=== PATIENT | female | born 1990 | race Caucasian/White ===

== ENCOUNTER 2017-07-07 05:24 | Day surgery (SDC) | payer OTHER ==
[2017-07-07] MEDS ORDERED: ONDANSETRON 4 MG/2 ML VIAL IVP ONE (05:48)
[2017-07-07] MEDS ORDERED: NS 1,000 ML IV ONE (05:48)
--- NOTE | 2017-07-07 05:51 | EDPHY ---
H & P Stated Complaint: RUQ pain - Personal History LMP (Females 10-55): 1-7 Days Ago Current Tetanus/Diphtheria Vaccine: Yes Current Tetanus Diphtheria and Acellular Pertussis (TDAP): Yes - Medical/Surgical History Hx Asthma: No Hx Chronic Respiratory Disease: No Hx Diabetes: No Hx Cardiac Disease: No Hx Renal Disease: No Hx Cirrhosis: No Hx Alcoholism: No Hx HIV/AIDS: No Hx Splenectomy or Spleen Trauma: No Other PMH: none - Social History Smoking Status: Never smoked Time Seen by Provider: 07/07/17 05:37 HPI/ROS: Chief Complaint: Abdominal pain HPI: 27 year wounds been having intermittent right lower quadrant abdominal pain for the last week. Patient states the pain is always there but for the last 3 nights he has particularly worse in the male tonight is been waking her up. At worst the pain is about an 8/10. It at best gets down to about a 5. She feels like she has been constipated but has been catheterization passing gas. Also is occasionally having diarrhea. There been no alleviating factors. She does state that tonight it hurts to walk and the car ride and was uncomfortable. Some nausea but no vomiting. No chest pain or shortness of breath. Does not have a history of similar episodes in the past. Last menstrual. Was a week ago and was normal. She is usually irregular. She has never been . She has an IUD in place. No history of sexually transmitted diseases. Abnormal vaginal discharge. ROS: 10 point Review of Systems is negative except as noted in the HPI. PMH: Denies Social History: No smoking, occasional alcohol, no recreational drug use Family History: non-contributory Physical Exam: Gen: Awake, Alert, No Distress HEENT: Nose: no rhinorrhea Eyes: PERRLA, EOMI Mouth: Moist mucosa Neck: Supple, no JVD Chest: nontender, lungs clear to auscultation Heart: S1, S2 normal, no murmur Abd: Soft, she is tender in the right lower quadrant with voluntary guarding, she has a positive Rovsing sign, voluntary guarding is present Back: no CVA tenderness, no midline tenderness Ext: no edema, non-tender Skin: no rash Neuro: CN II-XII intact, Sensation grossly intact, Strength 5/5 in bilateral upper and lower extremities (Murali Barahona) Constitutional: Initial Vital Signs Temperature (C) 36.9 C 07/07/17 05:28 Heart Rate 91 07/07/17 05:28 Respiratory Rate 16 07/07/17 05:28 Blood Pressure 107/71 07/07/17 05:28 O2 Sat (%) 97 07/07/17 05:28 O2 Delivery Mode Room Air O2 (L/minute) 2 Allergies/Adverse Reactions: No Known Allergies Allergy (Unverified 07/07/17 05:28) Home Medications: Medication Instructions Recorded Ciprofloxacin [Cipro] 500 mg PO BID #6 tab 10/19/13 Phenazopyridine HCl [Pyridium 200 mg PO TID #6 tab 10/19/13 200mg (RX)] Medical Decision Making ED Course/Re-evaluation: 27-year-old with right lower quadrant right adnexal pain. Will check labs, test and ultrasound. IV analgesia. Patient has an IUD in place. 06:30 test is positive. Given her history of IUD this makes it very concerning for likely ectopic . She is currently getting an ultrasound now. I have ordered a type and screen and a quantitative hCG. 0700 ultrasound is pending, quantitative HCG and type and screen are pending. Patient is signed out to Dr. Cummins pending ultrasound results. (Murali Barahona) Other Provider: Patient signed out to me at 0700 pending US results. This was read by Dr. Kulkarni as 8x5cm right adnexal mass, likely ectopic . No IUP. OBGYN paged immediately. Discussed case with Dr. Liz at 830. She will come evaluate the patient. (Juancarlos Cummins) - Data Points Laboratory Results: Laboratory Results 07/07/17 05:40 07/07/17 05:40 07/07/17 07/07/17 07/07/17 06:35 05:40 05:40 WBC RBC Hgb Hct MCV MCH MCHC RDW Plt Count MPV Neut % (Auto) Lymph % (Auto) [place] % (Auto) Eos % (Auto) Baso % (Auto) Nucleat RBC Rel Count Absolute Neuts (auto) Absolute Lymphs (auto) Absolute Monos (auto) Absolute Eos (auto) Absolute Basos (auto) Absolute Nucleated RBC Immature Gran % Immature Gran # Sodium 139 mEq/L mEq/L (134-144) Potassium 3.4 mEq/L L mEq/L (3.5-5.2) Chloride 104 mEq/L mEq/L (97-110) Carbon Dioxide 24 mEq/l mEq/l (22-31) Anion Gap 11 mEq/L mEq/L (8-16) BUN 11 mg/dL mg/dL (7-23) Creatinine 0.7 mg/dL mg/dL (0.6-1.0) Estimated GFR > 60 Glucose 112 mg/dL H mg/dL (70-100) Calcium 9.6 mg/dL mg/dL (8.5-10.4) Beta HCG, Qual POSITIVE Beta HCG, Quant Urine Color Urine Appearance Urine pH Ur Specific [place] Urine Protein Urine Ketones Urine Blood Urine Nitrate Urine Bilirubin Urine Urobilinogen Ur Leukocyte Esterase Urine RBC Urine WBC Ur Epithelial Cells Urine Mucus Urine Glucose Patient ABO/Rh O POSITIVE Antibody Screen NEGATIVE 07/07/17 07/07/17 07/07/17 05:40 05:30 05:25 WBC 15.29 10^3/uL H 10^3/uL (3.80-9.50) RBC 4.28 10^6/uL 10^6/uL (4.18-5.33) Hgb 13.0 g/dL g/dL (12.6-16.3) Hct 37.0 % L % (38.0-47.0) MCV 86.4 fL fL (81.5-99.8) MCH 30.4 pg pg (27.9-34.1) MCHC 35.1 g/dL g/dL (32.4-36.7) RDW 12.9 % % (11.5-15.2) Plt Count 332 10^3/uL 10^3/uL (150-400) MPV 8.3 fL L fL (8.7-11.7) Neut % (Auto) 81.5 % H % (39.3-74.2) Lymph % (Auto) 12.8 % L % (15.0-45.0) [place] % (Auto) 4.4 % L % (4.5-13.0) Eos % (Auto) 0.5 % L % (0.6-7.6) Baso % (Auto) 0.3 % % (0.3-1.7) Nucleat RBC Rel Count 0.0 % % (0.0-0.2) Absolute Neuts (auto) 12.46 10^3/uL H 10^3/uL (1.70-6.50) Absolute Lymphs (auto) 1.96 10^3/uL 10^3/uL (1.00-3.00) Absolute Monos (auto) 0.67 10^3/uL 10^3/uL (0.30-0.80) Absolute Eos (auto) 0.08 10^3/uL 10^3/uL (0.03-0.40) Absolute Basos (auto) 0.05 10^3/uL 10^3/uL (0.02-0.10) Absolute Nucleated RBC 0.00 10^3/uL 10^3/uL (0-0.01) Immature Gran % 0.5 % % (0.0-1.1) Immature Gran # 0.07 10^3/uL 10^3/uL (0.00-0.10) Sodium Potassium Chloride Carbon Dioxide Anion Gap BUN Creatinine Estimated GFR Glucose Calcium Beta HCG, Qual Beta HCG, Quant 4618.20 mIU/mL H mIU/mL (0.00-4.83) Urine Color YELLOW Urine Appearance HAZY Urine pH 5.0 (5.0-7.5) Ur Specific [place] 1.032 H (1.002-1.030) Urine Protein 1+ H (NEGATIVE) Urine Ketones TRACE H (NEGATIVE) Urine Blood 2+ H (NEGATIVE) Urine Nitrate NEGATIVE (NEGATIVE) Urine Bilirubin NEGATIVE (NEGATIVE) Urine Urobilinogen NEGATIVE EU EU (0.2-1.0) Ur Leukocyte Esterase NEGATIVE (NEGATIVE) Urine RBC 15-25 /hpf H /hpf (0-3) Urine WBC 1-3 /hpf /hpf (0-3) Ur Epithelial Cells TRACE /lpf /lpf (NONE-1+) Urine Mucus 1+ /lpf /lpf (NONE-1+) Urine Glucose NEGATIVE (NEGATIVE) Patient ABO/Rh Antibody Screen Medications Given: Discontinued Medications Hydromorphone HCl (Dilaudid) 0.5 mg IVP EDNOW ONE Stop: 07/07/17 08:00 Last Admin: 07/07/17 08:04 Dose: 0.5 mg Sodium Chloride (Ns) 1,000 mls @ 0 mls/hr IV ONCE ONE; Wide Open PRN Reason: Protocol Stop: 07/07/17 05:49 Last Admin: 07/07/17 06:00 Dose: 1,000 mls Morphine Sulfate (Morphine) 4 mg IVP ONCE ONE Stop: 07/07/17 05:49 Last Admin: 07/07/17 06:01 Dose: 4 mg Ondansetron HCl (Zofran) 4 mg IVP EDNOW ONE Stop: 07/07/17 05:49 Last Admin: 07/07/17 06:01 Dose: 4 mg Departure - Departure Disposition: [facility] Inpatient Acute Clinical Impression: Ectopic Qualifiers: Location of ectopic : tubal Intrauterine status: without intrauterine Laterality: right Qualified Code(s): O00.101 - Right tubal without intrauterine Condition: Fair Referrals: Lizeth Carter MD [Primary Care Provider] - As per Instructions
[2017-07-07 05:54] LABS: % IMMATURE GRANULYOCYTES 0.5 % (0.0-1.1); ABSOLUTE IMMATURE GRANULOCYTES 0.07 10^3/uL (0.00-0.10); ADD DIFF? NO; ADD MORPH? NO; ADD SCAN? NO; ATYPICAL LYMPHOCYTE FLAG 10 (0-99); FRAGMENT RBC FLAG 0 (0-99); LEFT SHIFT FLG 0 (0-99); LIPEMIA HEMOLYSIS FLAG 90 (0-99); MEAN CELL HEMOGLOBIN 30.4 pg (27.9-34.1); MEAN CELL HEMOGLOBIN CONCENTR. 35.1 g/dL (32.4-36.7); MEAN CELL VOLUME 86.4 fL (81.5-99.8); MEAN PLATELET VOLUME 8.3 fL (8.7-11.7); PLATELET CLUMPS FLAG 0 (0-99); PLATELET COUNT 332 10^3/uL (150-400); RED BLOOD CELL COUNT 4.28 10^6/uL (4.18-5.33); RED CELL DISTRIBUTION WIDTH 12.9 % (11.5-15.2)
[2017-07-07 05:57] LABS: LEUKOCYTE ESTERASE,URINE NEGATIVE (NEGATIVE); NITRITE,URINE NEGATIVE (NEGATIVE)
[2017-07-07 06:00] LABS: COLOR YELLOW
[2017-07-07 06:02] LABS: MUCUS 1+ /lpf (NONE-1+); RBC,URINE 15-25 /hpf (0-3)
[2017-07-07 06:14] LABS: ANION GAP 11 mEq/L (8-16); CALCIUM 9.6 mg/dL (8.5-10.4); CARBON DIOXIDE 24 mEq/l (22-31); CHLORIDE 104 mEq/L (97-110); CREATININE 0.7 mg/dL (0.6-1.0); GLOMERULAR FILTRATION RATE > 60; GLUCOSE 112 mg/dL (70-100); POTASSIUM 3.4 mEq/L (3.5-5.2); SODIUM 139 mEq/L (134-144)
[2017-07-07] MEDS ORDERED: HYDROmorphONE/DILAUDID 1 MG/ML INJ IVP ONE (07:59)
[2017-07-07] MEDS ORDERED: ceFAZolin 2 GM/SWFI 2 GM/20 ML SYR IVP ONE (08:48)
[2017-07-07] MEDS ORDERED: LR 1,000 ML IV SCH (09:00)
--- NOTE | 2017-07-07 09:07 | PDGENHP ---
History and Physical - Chief Complaint pelvic pain - History of Present Illness Chief Complaint: Abdominal pain HPI: 27 year with IUD who started bleeding last week and thought it was her period. Patient has had the copper IUD in place for 3 years. Pt has been having intermittent right lower quadrant abdominal pain for the last week. Patient states the pain is always there but for the last 3 nights he has particularly worse in the male tonight is been waking her up. At worst the pain is about an 8/10. It at best gets down to about a 5. She feels like she has been constipated but has been catheterization passing gas. Also is occasionally having diarrhea. There been no alleviating factors. She does state that tonight it hurts to walk and the car ride and was uncomfortable. Some nausea but no vomiting. No chest pain or shortness of breath. Does not have a history of similar episodes in the past. Last menstrual. Was a week ago and was normal. She is usually irregular. She has never been . She has an IUD in place. No history of sexually transmitted diseases. History Information - Allergies/Home Medication List Allergies/Adverse Reactions: No Known Allergies Allergy (Unverified 07/07/17 05:28) I have personally reviewed and updated: medical history - Social History Smoking Status: Never smoked Review of Systems Review of Systems: Physical Exam Physical Exam: Temp Pulse Resp BP Pulse Ox 36.9 C 73 18 112/73 97 07/07/17 05:28 07/07/17 08:09 07/07/17 08:09 07/07/17 08:09 07/07/17 08:10 Constitutional: no apparent distress Cardiovascular: regular rate and rhythym Respiratory: no respiratory distress Gastrointestinal: normoactive bowel sounds, soft, non-tender abdomen Genitourinary: no bladder fullness, other (speculum exam: small amount of blood in vagina Os closed. bimanual exam posterior fullness and abdominal tenderness.) Skin: warm, normal color Musculoskeletal: full muscle strength Neurologic: AAOx3 Psychiatric: interacting appropriately, not anxious Lab Data & Imaging Review 07/07/17 05:40 07/07/17 05:40 WBC 15.29 10^3/uL (3.80-9.50) H 07/07/17 05:40 RBC 4.28 10^6/uL (4.18-5.33) 07/07/17 05:40 Hgb 13.0 g/dL (12.6-16.3) 07/07/17 05:40 Hct 37.0 % (38.0-47.0) L 07/07/17 05:40 MCV 86.4 fL (81.5-99.8) 07/07/17 05:40 MCH 30.4 pg (27.9-34.1) 07/07/17 05:40 MCHC 35.1 g/dL (32.4-36.7) 07/07/17 05:40 RDW 12.9 % (11.5-15.2) 07/07/17 05:40 Plt Count 332 10^3/uL (150-400) 07/07/17 05:40 MPV 8.3 fL (8.7-11.7) L 07/07/17 05:40 Neut % (Auto) 81.5 % (39.3-74.2) H 07/07/17 05:40 Lymph % (Auto) 12.8 % (15.0-45.0) L 07/07/17 05:40 [place] % (Auto) 4.4 % (4.5-13.0) L 07/07/17 05:40 Eos % (Auto) 0.5 % (0.6-7.6) L 07/07/17 05:40 Baso % (Auto) 0.3 % (0.3-1.7) 07/07/17 05:40 Nucleat RBC Rel Count 0.0 % (0.0-0.2) 07/07/17 05:40 Absolute Neuts (auto) 12.46 10^3/uL (1.70-6.50) H 07/07/17 05:40 Absolute Lymphs (auto) 1.96 10^3/uL (1.00-3.00) 07/07/17 05:40 Absolute Monos (auto) 0.67 10^3/uL (0.30-0.80) 07/07/17 05:40 Absolute Eos (auto) 0.08 10^3/uL (0.03-0.40) 07/07/17 05:40 Absolute Basos (auto) 0.05 10^3/uL (0.02-0.10) 07/07/17 05:40 Absolute Nucleated RBC 0.00 10^3/uL (0-0.01) 07/07/17 05:40 Immature Gran % 0.5 % (0.0-1.1) 07/07/17 05:40 Immature Gran # 0.07 10^3/uL (0.00-0.10) 07/07/17 05:40 Sodium 139 mEq/L (134-144) 07/07/17 05:40 Potassium 3.4 mEq/L (3.5-5.2) L 07/07/17 05:40 Chloride 104 mEq/L (97-110) 07/07/17 05:40 Carbon Dioxide 24 mEq/l (22-31) 07/07/17 05:40 Anion Gap 11 mEq/L (8-16) 07/07/17 05:40 BUN 11 mg/dL (7-23) 07/07/17 05:40 Creatinine 0.7 mg/dL (0.6-1.0) 07/07/17 05:40 Estimated GFR > 60 07/07/17 05:40 Glucose 112 mg/dL (70-100) H 07/07/17 05:40 Calcium 9.6 mg/dL (8.5-10.4) 07/07/17 05:40 Beta HCG, Qual POSITIVE 07/07/17 05:40 Beta HCG, Quant 4618.20 mIU/mL (0.00-4.83) H 07/07/17 05:25 Urine Color YELLOW 07/07/17 05:30 Urine Appearance HAZY 07/07/17 05:30 Urine pH 5.0 (5.0-7.5) 07/07/17 05:30 Ur Specific [place] 1.032 (1.002-1.030) H 07/07/17 05:30 Urine Protein 1+ (NEGATIVE) H 07/07/17 05:30 Urine Ketones TRACE (NEGATIVE) H 07/07/17 05:30 Urine Blood 2+ (NEGATIVE) H 07/07/17 05:30 Urine Nitrate NEGATIVE (NEGATIVE) 07/07/17 05:30 Urine Bilirubin NEGATIVE (NEGATIVE) 07/07/17 05:30 Urine Urobilinogen NEGATIVE EU (0.2-1.0) 07/07/17 05:30 Ur Leukocyte Esterase NEGATIVE (NEGATIVE) 07/07/17 05:30 Urine RBC 15-25 /hpf (0-3) H 07/07/17 05:30 Urine WBC 1-3 /hpf (0-3) 07/07/17 05:30 Ur Epithelial Cells TRACE /lpf (NONE-1+) 07/07/17 05:30 Urine Mucus 1+ /lpf (NONE-1+) 07/07/17 05:30 Urine Glucose NEGATIVE (NEGATIVE) 07/07/17 05:30 Patient ABO/Rh O POSITIVE 07/07/17 06:35 Antibody Screen NEGATIVE 07/07/17 06:35 Imaging Review: [id number] Assessment & Plan Assessment: Ectopic (Acute) Admit to hospital Consent for laparoscopic removal of right ectopic Possible laparotomy Risk and benefits discussed with patient Possible admit overnight patient is aware Consent signed and all questions answered. Patient expressed desire of wanting to preserve fertility and removal of IUD
[2017-07-07] MEDS ORDERED: BUPIVACAINE/EPI 0.5% 30 ML SDV ONE (09:45)
[2017-07-07] MEDS ORDERED: ceFAZolin 2 GM/SWFI 20 ML SYR IVP ONE (09:45)
[2017-07-07] MEDS ORDERED: MIDAZOLAM 2 MG/2 ML VIAL ONE (10:10)
[2017-07-07] MEDS ORDERED: MIDAZOLAM 2 MG/2 ML VIAL IVP ONE (10:11)
--- NOTE | 2017-07-07 10:13 | PDANEPAE ---
ANE Past Medical History - Pulmonary History Hx Oxygen in Use at Home: No Hx Sleep Apnea: No - Endocrine History Hx Diabetes: No ANE Review of Systems Review of Systems: ANE Patient History - Allergies Allergies/Adverse Reactions: No Known Allergies Allergy (Unverified 07/07/17 05:28) - NPO status NPO Since - Liquids (Date): 07/07/17 NPO Since - Liquids (Time): 05:00 NPO Since - Solids (Date): 07/06/17 NPO Since - Solids (Time): 22:00 - Anes Hx Anes Hx: no prior problems - Smoking Hx Smoking Status: Never smoked ANE Labs/Vital Signs - Labs Result Diagrams: 07/07/17 05:40 07/07/17 05:40 - Vital Signs Blood Pressure: 110/55 Heart Rate: 79 Respiratory Rate: 14 O2 Sat (%): 96 Height: 172.72 cm Weight: 68.039 kg ANE Physical Exam - Airway Neck exam: FROM Mallampati Score: Class 1 Mouth exam: normal dental/mouth exam - Pulmonary Pulmonary: no respiratory distress, no rales or rhonchi, clear to auscultation - Cardiovascular Cardiovascular: regular rate and rhythym, no murmur, rub, or gallop - ASA Status ASA Status: I, E ANE Anesthesia Plan Anesthesia Plan: general endotracheal anesthesia
[2017-07-07] MEDS ORDERED: fentaNYL 100 MCG/2 ML INJ ONE ×2 (10:21→11:04)
[2017-07-07] MEDS ORDERED: PROPOFOL 200 MG/20 ML VIAL ONE (10:21)
[2017-07-07] MEDS ORDERED: ROCURONIUM 50 MG/5 ML VIAL ONE ×2 (10:22→11:38)
[2017-07-07] MEDS ORDERED: KETOROLAC 30 MG/1 ML SDV ONE (10:22)
[2017-07-07] MEDS ORDERED: DEXAMETHASONE 4 MG/ML VIAL ONE ×2 (10:22)
[2017-07-07] MEDS ORDERED: ONDANSETRON 4 MG/2 ML VIAL ONE (10:22)
[2017-07-07] MEDS ORDERED: LIDOCAINE 2% 5 ML SDV ONE (10:22)
[2017-07-07] MEDS ORDERED: SUGAMMADEX SODIUM 200 MG/2 ML VIAL IVP ONE (10:22)
[2017-07-07] MEDS ORDERED: MEPERIDINE 25 MG/ML SYR IVP PRN (12:04)
[2017-07-07] MEDS ORDERED: PROMETHAZINE HCL 25 MG/ML INJ IVP PRN (12:04)
[2017-07-07] MEDS ORDERED: fentaNYL 100 MCG/2 ML INJ IVP PRN (12:04)
[2017-07-07] MEDS ORDERED: OXYCODONE/APAP 5/325 TAB PO PRN (12:04)
[2017-07-07] MEDS ORDERED: LR 500 ML IV PRN (12:04)
[2017-07-07] MEDS ORDERED: ACETAMINOPHEN 500 MG TAB PO PRN (12:04)
[2017-07-07] MEDS ORDERED: NALOXONE HCL 0.4 MG/ML INJ IVP PRN (12:04)
--- NOTE | 2017-07-07 12:27 | POSTOPPROG ---
Post Op Note Date of Operation: 07/07/17 Surgeon: Kayley Liz Test Tech: Chastity Henry Anesthesia: GET(General Endotracheal) Pre-op Diagnosis: Right ectopic Post-op Diagnosis: Right ectopic with rupture from right fallopian tube Procedure: Laparoscopic right salpingectomy Findings: Rupture of right fallopian tube with ectopic through frimbia Inf/Abcess present in the surg proc area at time of surgery?: No Depth: Superfical (Skin SQ) EBL: Minimal Complications: none Specimen(s): products of conception right fallopian tube
--- NOTE | 2017-07-07 12:32 | POSTANESTH ---
Post Anesthetic Evaluation Cardiovascular Status: Normal, Stable, Similar to Pre-Op Cond Respiratory Status: Normal, Stable, Similar to Pre-op Cond. Level of Consciousness/Mental Status: Can Participate in Eval, Mildly Sleepy, Arousable Pain Control: Adequate, Prn Tx Ordered Nausea/Vomiting Control: Adequate, Prn Tx Ordered Complications Possibly Related to Anesthesia: None Noted
[2017-07-07 13:25] VITALS: TEMP 99
--- NOTE | 2017-07-07 13:27 | GOP ---
[f rep st] OPERATIVE REPORT DATE OF OPERATION: 07/07/2017 SURGEON: Kayley Liz MD SCRAP CHARGER: Chastity Henry DO. ANESTHESIA: General anesthetic. PREOPERATIVE DIAGNOSIS: Right ectopic . POSTOPERATIVE DIAGNOSIS: Right ectopic with rupture of ectopic through fimbriated end of right fallopian tube. PROCEDURE PERFORMED: FINDINGS: Rupture of right fallopian tube through fimbriated and with ectopic , products of conception found in the cul-de-sac. SPECIMENS: Products of conception and right fallopian tube. ESTIMATED BLOOD LOSS: Minimal, less than 50 mL. DESCRIPTION OF PROCEDURE: Patient was taken to the operating room where anesthetic was found to be adequate. Patient was in place in Lithotomy position with the Guilherme stirrups. A speculum was placed,The IUD was removed with the ring forceps. A uterine manipulator was placed within the lower uterus. The patient was then prepped and draped in the normal sterile fashion. A 5 mm infraumbilical incision was made with a scalpel. A Veress needle was inserted, confirmation that the intraabdominal space was entered with a drop of saline and the abdomen was then insufflated. Upon insufflation, the 5 mm trocar was then inserted under direct visualization.A complete view of the abdomen was noted. Of note, the uterus appeared normal. The left fallopian tube and ovary were normal. The right fallopian tube had what appeared to be products of conception coming through the right fimbriated end and the ectopic had ruptured through the fimbriated end of the fallopian tube which was attached to the right ovary. Large clots and blood in the cul-de-sac. The right lower abdomen 5 mm incision was then made and a 5 mm trocar was placed, and irrigation and suction took place where blood and products of conception were then removed. Visualization confirmed that the rupture had occurred at the right fimbriated end and attached to the fallopian tube. Attention was then turned to the left lower abdomen where a 5 mm incision was made and a 5 mm trocar was then placed at that time. Using the atraumatic grasper, products and clots were then removed from the cul-de-sac and from the adherent right ovary. At that time, a decision was then made to remove the right fallopian tube. At that point, the atraumatic grasper was placed in the right trocar. The fallopian tube was tented up and under direct visualization with the right grasper in the right trocar, the LigaSure was placed through the left trocar in the left lower abdomen and the LigaSure was used to coagulate, cauterize, cut and remove right fallopian through avascular portion of the mesosalpinx. Good hemostasis was noted and the right fallopian tube as well as the products of conception that were still in the uterine cul-de-sac were then removed and placed in the Endobag. This was performed as follows: The right LigaSure was removed as well as the 5 mm trocar. The incision was then extended to 10 mm. A 10 mm trocar was placed under direct visualization and the Endobag was then placed through the 10 mm trocar. At that point, the products of conception were placed in the Endobag and both the Endobag and the trocar was then removed from the abdomen without complication and handed to pathology. Irrigation of the abdominal cavity was performed. Good hemostasis was noted and visualization of the abdomen then took place. Attention was then turned to the right 10 mm incision. The fascia was then grasped with a Gaudencio and was then closed with a 3-0 Vicryl on an SH needle and good hemostasis noted. All gas was removed from the abdomen after all instruments were removed from the abdomen. The skin was then closed with 4-0 Monocryl. Benzoin and Steri-Strips were placed. The uterine manipulator was removed from the vagina as well as the Hart catheter. . Patient was taken to the recovery room in stable condition. PROCEDURE PERFORMED: Laparoscopic right salpingectomy. COMPLICATIONS: None. Findings: Normal uterus, normal left fallopian tube and ovary. Right fallopian tube with ectopic ruptured through fimbriated end /[id number]
[2017-07-07 13:28] VITALS: PULSE 73
[2017-07-07] MEDS ORDERED: OXYCODONE/APAP 5/325 TAB ONE (13:58)
[2017-07-07 15:26] VITALS: BP 106/52; RESP 20; O2SAT 93
== END 2017-07-07 15:23 | disposition home or self-care (01) ==
LOC: UNDOADMOB 08:48 → FSGY 09:55
PROVIDERS: ATTEND Obstetrics & Gynecology
PROC: 10D28ZZ Extraction of Products of Conception, Ectopic, Via Natural or Artificial Opening Endoscopic (ICD-10-PCS; principal; 2017-07-07 09:45)
DX: O00.101 Right tubal pregnancy without intrauterine pregnancy (principal); Z97.5 Presence of (intrauterine) contraceptive device
CPT/HCPCS: 96374; J0690; J1100; J1170; J1885; J2250; J2405; J2704; J3010